=== PATIENT | male | born 1975 | race Caucasian/White ===

== ENCOUNTER → 2020-10-14 | Outpatient (CLI) | payer BC ==
[2020-10-14 18:36] LABS: BASO # 0.08 (0.02-0.10); EOS # 0.09 (0.04-0.40); EOS % 0.8 % (0.0-4.0); HEMATOCRIT 36.6 % (42.0-52.0); HEMOGLOBIN 12.5 g/dL (13.5-18.0); LYMPH# 1.51 (1.50-4.00); MEAN CELL VOLUME 93 fl (78-100); MEAN CORPUSCULAR HEMOGLOBIN 32 pg (27-31); MEAN CORPUSCULAR HGB CONC 34 g/dL (33-37); MEAN PLATELET VOLUME 9.9 fl (7.4-10.4); MONO # 1.04 (0.20-0.80); NEU # 7.87 (1.40-6.50); PLATELET COUNT 254 K/mm3 (130-400); RED BLOOD COUNT 3.93 M/mm3 (4.20-5.60); RED CELL DISTRIBUTION WIDTH 13.7 % (11.5-14.5); WHITE BLOOD COUNT 10.6 K/mm3 (4.8-10.8)
[2020-10-14 18:40] LABS: ALBUMIN 3.9 g/dL (3.5-5.0); POTASSIUM 4.1 mmol/L (3.5-5.1)
[2020-10-14 18:43] LABS: TOTAL PROTEIN 7.6 g/dL (6.4-8.3)
[2020-10-14 18:56] LABS: URINE COLOR YELLOW
[2020-10-14 18:57] LABS: URINE APPEARANCE HAZY; URINE BILIRUBIN 1+ (NEGATIVE); URINE BLOOD 250 ery/uL (NEGATIVE); URINE GLUCOSE NEGATIVE (NEGATIVE); URINE KETONE NEGATIVE (NEGATIVE); URINE LEUKOCYTE ESTERASE NEGATIVE (NEGATIVE); URINE MUCUS PRESENT (NOT PRESENT); URINE NITRATE NEGATIVE (NEGATIVE); URINE PROTEIN(semi-quant) TRACE mg/dL (NEGATIVE); URINE UROBILINOGEN 1 mg/dL (NORMAL)
== END ==
LOC: LAB 18:13
PROVIDERS: Family Medicine
DX: R50.9 Fever, unspecified (principal)

== ENCOUNTER → 2020-10-22 | Outpatient (CLI) | payer BC | LOC: VAS 08:59 → RAD 11-22 10:00 | DX: R07.9 Chest pain, unspecified (principal) ==

== ENCOUNTER → 2020-10-25 | Outpatient (CLI) | payer BC ==
[2020-10-25 15:20] LABS: BASO # 0.06 (0.02-0.10); EOS # 0.03 (0.04-0.40); EOS % 0.3 % (0.0-4.0); HEMATOCRIT 33.5 % (42.0-52.0); HEMOGLOBIN 11.1 g/dL (13.5-18.0); LYMPH# 1.45 (1.50-4.00); MEAN CELL VOLUME 94 fl (78-100); MEAN CORPUSCULAR HEMOGLOBIN 31 pg (27-31); MEAN CORPUSCULAR HGB CONC 33 g/dL (33-37); MEAN PLATELET VOLUME 9.4 fl (7.4-10.4); MONO # 0.88 (0.20-0.80); NEU # 8.48 (1.40-6.50); PLATELET COUNT 234 K/mm3 (130-400); RED BLOOD COUNT 3.58 M/mm3 (4.20-5.60); RED CELL DISTRIBUTION WIDTH 14.3 % (11.5-14.5)
== END ==
LOC: LAB 15:01
PROVIDERS: Family Medicine
DX: R01.1 Cardiac murmur, unspecified (principal); R50.9 Fever, unspecified